=== PATIENT | male | born 2000 | race Caucasian/White ===

== ENCOUNTER 2019-12-06 02:10 | Emergency (ER) | payer OTHER ==
[2019-12-06] MEDS ORDERED: Lidocaine 1% with EPINEPHrine 1:100,000 20 ML MDV INFILT ONE (02:13)
[2019-12-06 02:34] VITALS: BP 119/62; PULSE 96
--- NOTE | 2019-12-06 02:35 | EDM.PDOC ---
ED HPI GENERAL MEDICAL PROBLEM - General Chief Complaint: Laceration Stated Complaint: Laceration to left upper abdomen Time Seen by Provider: 12/06/19 02:10 Source of Information: Reports: Patient History Limitations: Reports: No Limitations - History of Present Illness INITIAL COMMENTS - FREE TEXT/NARRATIVE: Patient comes emergency department today with complaints of a laceration to the abdomen. Patient relates he and his friends were "messing around" when he rolled into a piece of metal that cut his abdomen. This happened just prior to arrival. His last tetanus shot was when he was 16 so just 3 years ago. He has no abdominal pain nausea or vomiting. left upper abdomen/lac Pain Score (Numeric/FACES): 3 - Related Data Allergies Allergy/AdvReac Type Severity Reaction Status Date / Time Penicillins Allergy Rash Verified 12/06/19 02:34 Home Meds: Home Meds . [No Known Home Meds] 12/06/13 [History] Past Medical History - Past Health History Medical/Surgical History: Denies Medical/Surgical History ED ROS GENERAL - Review of Systems Review Of Systems: Comprehensive ROS is negative, except as noted in HPI. ED EXAM, SKIN/RASH Exam: See Below Exam Limited By: No Limitations General Appearance: Alert, WD/WN, No Apparent Distress Respiratory/Chest: No Respiratory Distress, Lungs Clear Cardiovascular: Normal Peripheral Pulses, Regular Rate, Rhythm GI/Abdominal: Normal Bowel Sounds, Soft, Non-Tender, Other (On the left upper quadrant of the abdomen there is a superficial 2 cm linear laceration that does extend into the subcutaneous tissue. I did probe the area of laceration with sterile Q-tips and it just minimally enters into the subcutaneous tissue.). No: Distended, Guarding, Rigid, Rebound, Tender Extremities: Normal Inspection Neurological: Alert, Oriented, Normal Cognition, No Motor/Sensory Deficits Skin: Warm, Dry, Intact, Normal Color ED SKIN PROCEDURES - Laceration/Wound Repair Left Upper Abdomen Appearance: Subcutaneous, Linear, Clean Distal NVT: Neuro & Vascular Intact Anesthetic Type: Local Local Anesthesia - Lidocaine (Xylocaine): 1% with EPI Local Anesthetic Volume: 3cc Skin Prep: Chlorhexidine (Hibiciens) Exploration/Debridement/Repair: Wound Explored, In a Bloodless Field, Explored to Base (Minimally extends into the subcutaneous tissue.) Closed with: Sutures Lac/Wound length In cm: 2 Suture Size: 5-0 Suture Type: Nylon Sterile Dressing Applied: Nurse Tetanus Status Addressed: Yes Course - Vital Signs Last Recorded V/S: Last Vital Signs Temp 98.7 F 12/06/19 02:10 Pulse 96 12/06/19 02:10 Resp 16 12/06/19 02:10 BP 119/62 12/06/19 02:10 Pulse Ox 97 12/06/19 02:10 - Orders/Labs/Meds Meds: Medications Discontinued Medications Generic Name Dose Route Start Last Admin Trade Name Myra PRN Reason Stop Dose Admin Lidocaine/Epinephrine 20 ml 12/06/19 02:13 12/06/19 02:22 Xylocaine 1% With Epinephrine 1:100,000 INFILT 12/06/19 02:14 3 ml ONETIME ONE Administration Departure - Departure Time of Disposition: 02:32 Disposition: Home, Self-Care 01 Clinical Impression: Laceration of abdomen Qualifiers: Encounter type: initial encounter Qualified Code(s): S31.119A - Laceration without foreign body of abdominal wall, unspecified quadrant without penetration into peritoneal cavity, initial encounter - Discharge Information Instructions: Laceration Care, Adult, [id number] Referrals: PCP,Unobtain [Primary Care Provider] - Forms: ED Department Discharge Additional Instructions: Cleanse at least twice daily with soap and water. Bacitracin and bandage until healed. Sutures out in 7 days. Watch for signs of infection. Return to the ED if new or worsening symptoms. Follow up with PCP in the next 7 days for suture removal. Sepsis Event Note (ED) - Focused Exam Vital Signs: Vital Signs Temp Pulse Resp BP Pulse Ox 12/06/19 02:10 98.7 F 96 16 119/62 97 - Assessment/Plan Assessment:: 2cm abd laceration into the subcutaneous tissue. Plan: Cleanse at least twice daily with soap and water. Bacitracin and bandage until healed. Sutures out in 7 days. Watch for signs of infection. Return to the ED if new or worsening symptoms. Follow up with PCP in the next 7 days for suture removal.
== END 2019-12-06 02:43 | disposition home or self-care (01) ==
LOC: VM.ED 02:10
DX: S31.111A Laceration without foreign body of abdominal wall, left upper quadrant without penetration into peritoneal cavity, initial encounter (principal); Z88.0 Allergy status to penicillin; W26.8XXA Contact with other sharp object(s), not elsewhere classified, initial encounter
CPT/HCPCS: 12001; 99282; 99283-GF